=== PATIENT | female | born 1995 ===

== ENCOUNTER 2020-05-26 12:46 | Emergency (ER) | payer SELFPAY ==
[2020-05-26 13:00] VITALS: BP 141/85
--- NOTE | 2020-05-26 13:13 | Emergency Department Report ---
Suture/Staple Removal - HPI Chief Complaint: Laceration/Recheck/Suture Stated Complaint: REMOVE STITCHES Time Seen by Provider: 05/26/20 13:06 When Sutures or [place] Placed: 3 weeks Wound Location: Forehead ED Review of Systems ROS: Stated complaint: REMOVE STITCHES Other details as noted in HPI Comment: All other systems reviewed and negative Constitutional: denies: chills, fever Eyes: denies: eye pain, eye discharge, vision change ENT: denies: ear pain, throat pain Respiratory: denies: cough, shortness of breath, wheezing Cardiovascular: denies: chest pain, palpitations Endocrine: no symptoms reported Gastrointestinal: denies: abdominal pain, nausea, diarrhea Genitourinary: denies: urgency, dysuria, discharge Musculoskeletal: denies: back pain, joint swelling, arthralgia Skin: denies: rash, lesions Neurological: denies: headache, weakness, paresthesias Psychiatric: denies: anxiety, depression Hematological/Lymphatic: denies: easy bleeding, easy bruising ED Past Medical Hx - Past Medical History Previous Medical History?: No - Surgical History Past Surgical History?: No - Social History Smoking Status: Never Smoker Suture Removal Exam - Exam General: Vital signs noted. No distress. Alert and acting appropriately. Wound: No Pathologic Erythema, No Tenderness, No Drainage, No Pus, No Wound Dehiscence Other Systems: All other systems reviewed and are unremarkable. Sutures are clean, dry and intact. There is 1 spitting internal stitch on the left lateral border of the incision that was clipped. ED Course Vital Signs 05/26/20 12:58 Temperature 98.3 F Pulse Rate 67 Respiratory 16 Rate Blood Pressure 141/85 O2 Sat by Pulse 100 Oximetry ED Recheck MDM - Differential Diagnosis Suture/Staple Removal - Medical Decision Making Sutures removed without complication. Patient tolerated well. Patient be discharged in stable condition with a primary care follow-up for wound check. Critical care attestation.: If time is entered above; I have spent that time in minutes in the direct care of this critically ill patient, excluding procedure time. ED Disposition Clinical Impression: Visit for suture removal Disposition: DC- TO HOME OR SELFCARE Is pt being admited?: No Condition: Stable Instructions: Suture Removal (ED) Time of Disposition: 13:10
== END 2020-05-26 13:12 | disposition home or self-care (01) ==
LOC: ED 12:46
DX: Z48.02 Encounter for removal of sutures (principal)